=== PATIENT | female | born 2000 | race Caucasian/White ===

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

== ENCOUNTER 2021-10-29 18:18 | Emergency (ER) | payer BC ==
[2021-10-29 18:35] VITALS: RESP 18
[2021-10-29] MEDS ORDERED: ONDANSETRON 4 MG/2 ML VIAL IVP STA (19:28)
[2021-10-29] MEDS ORDERED: SODIUM CHLORIDE 0.9% 1,000 ML IV STA (19:28)
[2021-10-29] MEDS ORDERED: KETOROLAC 15 MG/ML 1 ML VIAL IVP STA (19:29)
[2021-10-29] MEDS ORDERED: BAMLANIVIMAB (EUA) 700 MG, ETESEVIMAB (EUA) 1,400 MG in SODIUM CHLORIDE 0.9% 50 ML IVPB ONE (19:45)
[2021-10-29] MEDS ORDERED: SODIUM CHLORIDE 0.9% 50 ML IVPB ONE (19:45)
--- NOTE | 2021-10-29 20:12 | ED ---
General Adult HPI - General Source: patient, RN notes reviewed Mode of arrival: ambulatory Limitations: no limitations <Princess Ivey - Last Filed: 10/30/21 00:03> <Faiza Mariscal - Last Filed: 11/01/21 00:21> - General Chief complaint: Nausea/Vomiting/Diarrhea Stated complaint: Covid+/Chest pain Time Seen by Provider: 10/29/21 19:03 - History of Present Illness Initial comments: 21-year-old female presents to the emergency Department with complaints of fatigue and body aches. Patient states she tested positive for COVID on the and continues to feel poorly. States she now has GI symptoms including na usea, vomiting, and diarrhea. Reports a history of an eating disorder and has been struggling to keep Gatorade and Pedialyte down. Patient states she did have an episode of palpitations accompanied by some left-sided chest discomfort earlier in the day, but states this resolved within minutes of onset. Denies fever, dizziness, shortness of breath, difficulty breathing, cough, abdominal pain, constipation, dysuria, and hematuria. (Princess Ivey) - Related Data Home Medications Medication Instructions Recorded Confirmed Acetaminophen Tab [Tylenol Tab] 1,000 mg PO Q6HR 10/29/21 10/29/21 Ondansetron HCl [Zofran] 4 mg PO Q8H PRN 10/29/21 10/29/21 Allergies Allergy/AdvReac Type Severity Reaction Status Date / Time No Known Allergies Allergy Verified 10/29/21 19:52 Review of Systems ROS Other: All systems not noted in ROS Statement are negative. <Princess Ivey - Last Filed: 10/30/21 00:03> ROS Other: All systems not noted in ROS Statement are negative. <Faiza Mariscal - Last Filed: 11/01/21 00:21> ROS Statement: Those systems with pertinent positive or pertinent negative responses have been documented in the HPI. Past Medical History Past Medical History: Asthma Additional Past Medical History / Comment(s): ASTHMA MORE YOUNGER CHILD. OLD FX LT WRIST. FREQ SINUS INFECTIONS, ENLARGED ADENOIDS CURRENTLY. pt states she has an eating disorder and has issues Usually eating due to nausea. History of Any Multi-Drug Resistant Organisms: None Reported Additional Past Surgical History / Comment(s): EXTRACTION 2 TEETH. Past Anesthesia/Blood Transfusion Reactions: No Reported Reaction Past Psychological History: No Psychological Hx Reported Smoking Status: Never smoker Past Alcohol Use History: None Reported Past Drug Use History: Marijuana - Past Family History Mother Family Medical History: No Reported History <Princess Ivey - Last Filed: 10/30/21 00:03> General Exam Limitations: no limitations (Well-developed, well-nourished female in no acute distress. Initial temperature 98.4, pulse 99, respirations 18, blood pressure 123/86, pulse ox 97% on room air.) General appearance: alert, in no apparent distress ENT exam: Present: normal exam, normal oropharynx, mucous membranes moist Respiratory exam: Present: normal lung sounds bilaterally. Absent: respiratory distress, wheezes, rales, rhonchi, stridor Cardiovascular Exam: Present: regular rate, normal rhythm, normal heart sounds. Absent: systolic murmur, diastolic murmur, rubs, gallop, clicks GI/Abdominal exam: Present: soft, normal bowel sounds. Absent: distended, tenderness, guarding, rebound, rigid Back exam: Present: normal inspection Neurological exam: Present: alert, oriented X3, CN II-XII intact Psychiatric exam: Present: normal affect, normal mood Skin exam: Present: warm, dry, intact, normal color. Absent: rash <Princess Ivey - Last Filed: 10/30/21 00:03> Course Vital Signs 10/29/21 10/29/21 10/29/21 18:28 20:00 21:59 Temperature 98.4 F 98.1 F 98.5 F Pulse Rate 99 90 78 Respiratory 18 18 18 Rate Blood Pressure 123/86 120/87 116/78 O2 Sat by Pulse 97 100 97 Oximetry Medical Decision Making - Lab Data Result diagrams: 10/29/21 20:09 10/29/21 20:09 - EKG Data EKG shows normal: sinus rhythm Rate: normal - Radiology Data Radiology results: report reviewed, image reviewed <Princess Ivey - Last Filed: 10/30/21 00:03> - Lab Data Result diagrams: 10/29/21 20:09 10/29/21 20:09 <Faiza Mariscal - Last Filed: 11/01/21 00:21> - Medical Decision Making 21-year-old female with a past medical history of asthma and eating disorder presents to the emergency department for evaluation. She is Covid positive and has been having symptoms for the past 5 days. States she has had a poor kailash etite and increased nausea, and has had 2 or 3 episodes of vomiting and diarrhea today. Patient also reports experiencing a brief fluttering sensation in her chest accompanied by a transient sharp pain in her left chest that occurred several hours ago. Upon exam, patient is well-appearing and in no acute distress. Vital signs are stable. She was afebrile and not tachycardic nor tachypnea. Complaints of body aches and decreased appetite along with nausea at this time. Laboratory studies were obtained and are unremarkable. EKG shows normal sinus rhythm. Chest x-ray is negative. Patient provides documentation of positive COVID test. Discussed option of monoclonal antibody infusion and patient is agreeable. Infusion was tolerated without any adverse side effects. Patient did receive an liter of IV fluid, and was given Toradol and Zofran with improvement. Patient will be discharged home to follow-up with her primary care provider for a recheck. Return parameters were discussed in detail. Patient verbalizes understanding and agrees with this plan. This patient's care was discussed with my attending Dr. Mariscal. (Princess Ivey) I was available for consultation in the emergency department. The history and physical exam were done by the midlevel provider. I was consulted for this patients care. I reviewed the case with the midlevel provider and based on their presentation of the patient, I agree with the assessment, medical decision making and plan of care as documented. Chart was dictated using [employer] dictation software. Attempts were made to correct any dictation errors however some typographical errors may persist. (Faiza Mariscal) - Lab Data Lab Results 10/29/21 10/29/21 10/29/21 Range/Units 20:09 20:09 20:09 WBC 4.5 (4.0-11.0) k/uL RBC 4.95 (3.80-5.40) m/uL Hgb 14.6 (11.4-16.0) gm/dL Hct 43.9 (34.0-46.0) % MCV 88.5 (80.0-100.0) fL MCH 29.4 (25.0-35.0) pg MCHC 33.2 (31.0-37.0) g/dL RDW 12.3 (11.5-15.5) % Plt Count 173 (150-450) k/uL MPV 7.5 Neutrophils % 70 % Lymphocytes % 19 % Monocytes % 9 % Eosinophils % 0 % Basophils % 1 % Neutrophils # 3.2 (1.3-7.7) k/uL Lymphocytes # 0.8 L (1.0-4.8) k/uL Monocytes # 0.4 (0-1.0) k/uL Eosinophils # 0.0 (0-0.7) k/uL Basophils # 0.0 (0-0.2) k/uL Sodium 139 (137-145) mmol/L Potassium 4.3 (3.5-5.1) mmol/L Chloride 101 (98-107) mmol/L Carbon Dioxide 26 (22-30) mmol/L Anion Gap 12 mmol/L BUN 13 (7-17) mg/dL Creatinine 0.64 (0.52-1.04) mg/dL Est GFR (CKD-EPI)AfAm >90 (>60 ml/min/1.73 sqM) Est GFR (CKD-EPI)NonAf >90 (>60 ml/min/1.73 sqM) Glucose 96 (74-99) mg/dL Calcium 10.3 H (8.4-10.2) mg/dL Total Bilirubin 0.3 (0.2-1.3) mg/dL AST 28 (14-36) U/L ALT 16 (4-34) U/L Alkaline Phosphatase 61 (38-126) U/L Troponin I (0.000-0.034) ng/mL Total Protein 8.3 H (6.3-8.2) g/dL Albumin 5.0 (3.5-5.0) g/dL Urine Color Light Yellow Urine Appearance Cloudy H (Clear) Urine pH 7.5 (5.0-8.0) Ur Specific [place] 1.005 (1.001-1.035) Urine Protein Negative (Negative) Urine Glucose (UA) Negative (Negative) Urine Ketones Negative (Negative) Urine Blood Negative (Negative) Urine Nitrite Negative (Negative) Urine Bilirubin Negative (Negative) Urine Urobilinogen <2.0 (<2.0) mg/dL Ur Leukocyte Esterase Negative (Negative) Urine RBC <1 (0-5) /hpf Urine WBC 2 (0-5) /hpf Ur Squamous Epith Cells 8 H (0-4) /hpf 10/29/21 Range/Units 20:09 WBC (4.0-11.0) k/uL RBC (3.80-5.40) m/uL Hgb (11.4-16.0) gm/dL Hct (34.0-46.0) % MCV (80.0-100.0) fL MCH (25.0-35.0) pg MCHC (31.0-37.0) g/dL RDW (11.5-15.5) % Plt Count (150-450) k/uL MPV Neutrophils % % Lymphocytes % % Monocytes % % Eosinophils % % Basophils % % Neutrophils # (1.3-7.7) k/uL Lymphocytes # (1.0-4.8) k/uL Monocytes # (0-1.0) k/uL Eosinophils # (0-0.7) k/uL Basophils # (0-0.2) k/uL Sodium (137-145) mmol/L Potassium (3.5-5.1) mmol/L Chloride (98-107) mmol/L Carbon Dioxide (22-30) mmol/L Anion Gap mmol/L BUN (7-17) mg/dL Creatinine (0.52-1.04) mg/dL Est GFR (CKD-EPI)AfAm (>60 ml/min/1.73 sqM) Est GFR (CKD-EPI)NonAf (>60 ml/min/1.73 sqM) Glucose (74-99) mg/dL Calcium (8.4-10.2) mg/dL Total Bilirubin (0.2-1.3) mg/dL AST (14-36) U/L ALT (4-34) U/L Alkaline Phosphatase (38-126) U/L Troponin I <0.012 (0.000-0.034) ng/mL Total Protein (6.3-8.2) g/dL Albumin (3.5-5.0) g/dL Urine Color Urine Appearance (Clear) Urine pH (5.0-8.0) Ur Specific [place] (1.001-1.035) Urine Protein (Negative) Urine Glucose (UA) (Negative) Urine Ketones (Negative) Urine Blood (Negative) Urine Nitrite (Negative) Urine Bilirubin (Negative) Urine Urobilinogen (<2.0) mg/dL Ur Leukocyte Esterase (Negative) Urine RBC (0-5) /hpf Urine WBC (0-5) /hpf Ur Squamous Epith Cells (0-4) /hpf - EKG Data EKG Comments: EKG was obtained at 2026 and shows normal sinus rhythm with sinus arrhythmia. Ventricular rate 82, MD interval 136, QRS duration 84, QT/QTC 394/460. Interpretation is normal ECG. (Princess Ivey) - Radiology Data Two-view chest x-ray was obtained. Report was reviewed in entirety. Impression per Dr. Lange is normal chest. (Princess Ivey) Disposition Is patient prescribed a controlled substance at d/c from ED?: No Time of Disposition: 21:59 <Princess Ivey - Last Filed: 10/30/21 00:03> <Faiza Mariscla - Last Filed: 11/01/21 00:21> Clinical Impression: COVID-19 Disposition: HOME SELF-CARE Condition: Stable Instructions (If sedation given, give patient instructions): Coronavirus Disease 2019 (COVID-19) Additional Instructions: You should quarantine for 10 days from symptom onset. Alternate Tylenol and Motrin as needed for fever control and body aches. Continue taking the Zofran as she will prescribed. Follow-up with your PCP for a telephone or video visit. Return to the emergency department with any new, worsening, or concerning symptoms. Referrals: None,Stated [Primary Care Provider] - 1-2 days
[2021-10-29 20:25] LABS: Basophils % (A) 1 %; Eosinophils % (A) 0 %; HCT 43.9 % (34.0-46.0); HGB 14.6 gm/dL (11.4-16.0); Lymphocytes # (A) 0.8 k/uL (1.0-4.8); Lymphocytes % (A) 19 %; MCH 29.4 pg (25.0-35.0); MCHC 33.2 g/dL (31.0-37.0); MCV 88.5 fL (80.0-100.0); Mean Platelet Volume 7.5; Monocytes # (A) 0.4 k/uL (0-1.0); Monocytes % (A) 9 %; Neutrophils # (A) 3.2 k/uL (1.3-7.7); Neutrophils % (A) 70 %; Platelet Count 173 k/uL (150-450); RBC 4.95 m/uL (3.80-5.40); RDW 12.3 % (11.5-15.5); WBC 4.5 k/uL (4.0-11.0)
[2021-10-29 20:45] LABS: Appearance,Urine Cloudy (Clear); Bilirubin,Urine Negative (Negative); Blood,Urine Negative (Negative); Color,Urine Light Yellow; Glucose,Urine (UA) Negative (Negative); Ketones,Urine Negative (Negative); Leukocyte Esterase,Urine Negative (Negative); Nitrite,Urine Negative (Negative); PH, Urine 7.5 (5.0-8.0); Protein,Urine Negative (Negative); RBC,Urine <1 /hpf (0-5); Specific Gravity,Urine 1.005 (1.001-1.035); Squamous Epithelial Cell,Urine 8 /hpf (0-4); Urobilinogen,Urine <2.0 mg/dL (<2.0); WBC,Urine 2 /hpf (0-5)
[2021-10-29 20:50] LABS: ALT 16 U/L (4-34); AST 28 U/L (14-36); African American GFR (CKD) >90 (>60 ml/min/1.73 sqM); Alkaline Phosphatase 61 U/L (38-126); Anion Gap 12 mmol/L; Blood Urea Nitrogen 13 mg/dL (7-17); Calcium 10.3 mg/dL (8.4-10.2); Carbon Dioxide 26 mmol/L (22-30); Chloride 101 mmol/L (98-107); Glucose 96 mg/dL (74-99); Non-African American GFR(CKD) >90 (>60 ml/min/1.73 sqM); Potassium 4.3 mmol/L (3.5-5.1); Sodium 139 mmol/L (137-145); Total Bilirubin 0.3 mg/dL (0.2-1.3); Total Protein 8.3 g/dL (6.3-8.2)
--- NOTE | 2021-10-29 20:56 | XR ---
EXAMINATION TYPE: XR chest 2V DATE OF EXAM: 10/29/2021 COMPARISON: NONE HISTORY: Chest pain TECHNIQUE: 2 views FINDINGS: Heart and mediastinum are normal. Lungs are clear. Diaphragm is normal. Bony thorax is inta ct. Pulmonary vascularity is normal. IMPRESSION: Normal chest.
[2021-10-29 22:02] VITALS: BP 116/78; PULSE 78; TEMP 98.5
== END 2021-10-29 22:06 | disposition home or self-care (01) ==
LOC: EC 18:18
DX: U07.1 COVID-19 (principal); J45.909 Unspecified asthma, uncomplicated; F12.90 Cannabis use, unspecified, uncomplicated
CPT/HCPCS: 96361; 96374; 96375; 99285; M0245; 36415; 71046; 80053; 81001; 84484; 85025; 93005